=== PATIENT | male | born 1970 | race African-American/Black ===

== ENCOUNTER 2021-06-21 22:23 | Emergency (ER) | payer SELFPAY ==
[~2021-06-21] VITALS: Ht 185.4 cm; Wt 87.0 kg
[2021-06-21 23:58] VITALS: BP 117/71
== END 2021-06-21 23:59 ==
LOC: EDBD 22:23 → ER 22:23
DX: S50.312A Abrasion of left elbow, initial encounter (principal); S80.211A Abrasion, right knee, initial encounter; R46.2 Strange and inexplicable behavior; R46.1 Bizarre personal appearance; R73.9 Hyperglycemia, unspecified; X58.XXXA Exposure to other specified factors, initial encounter; Y93.9 Activity, unspecified; Y92.488 Other paved roadways as the place of occurrence of the external cause
CPT/HCPCS: 99283